=== PATIENT | male | born 1955 | race Caucasian/White ===

== ENCOUNTER 2022-03-11 03:35 | Emergency (ER) | payer BC ==
[~2022-03-11] VITALS: Ht 205.7 cm; Wt 75.7 kg
[2022-03-11] MEDS ORDERED: TAMS0.4C PO (08:49)
[2022-03-11] MEDS ORDERED: DICLOFENAC POTA50 MG PO (08:49)
[2022-03-11] MEDS ORDERED: DUI500 PO (08:49)
== END 2022-03-11 09:01 | disposition home or self-care (01) ==
LOC: ER 03:35
DX: M54.50 Low back pain, unspecified (principal); N13.2 Hydronephrosis with renal and ureteral calculous obstruction; K57.30 Diverticulosis of large intestine without perforation or abscess without bleeding; K76.89 Other specified diseases of liver